=== PATIENT | female | born 1935 | race Caucasian/White ===

== ENCOUNTER 2018-03-01 20:05 | Emergency (ER) | payer OTHER, MEDICAID ==
--- NOTE | 2018-03-01 20:05 | EDPHY ---
H & P Time Seen by Provider: 03/01/18 20:05 Constitutional: Initial Vital Signs Temperature (C) 37.7 C 03/01/18 20:15 Heart Rate 89 03/01/18 20:15 Respiratory Rate 20 03/01/18 20:15 Blood Pressure 173/91 H 03/01/18 20:15 O2 Sat (%) 92 03/01/18 20:15 O2 Delivery Mode Room Air Allergies/Adverse Reactions: propylene glycol Allergy (Verified 03/01/18 20:21) Home Medications: Medication Instructions Recorded Fluticasone Nasal [Flonase Nasal 1 sprays NASAL DAILY 08/03/14 [place] (RX)] Medical Decision Making ED Course/Re-evaluation: CHIEF COMPLAINT: Racing heart HISTORY OF PRESENT ILLNESS: The patient is an 82 y/o female with a history of asthma and atrial fibrillation arriving via EMS complaining of a racing heart onset while watching TV today. The patient was watching TV when she noticed her heart rate increased to 130bpm. When EMS arrived they noted that her highest heart rate was 120. While en route to the emergency department her heart rate normalized to 97. Per the patient, she has had decreased fluid intake today but has been eating normally; she only had wine at dinner today. As she hasn't been drinking much fluid, she has had decreased urine output. No fever, headache, chest pain, shortness of breath, abdominal pain, urinary or bowel complaints, numbness, paresthesias. REVIEW OF SYSTEMS: A comprehensive 10 system review of systems is otherwise negative aside from elements mentioned in the history of present illness and medical decision making. PHYSICAL EXAM: HR, BP, O2 Sat, RR. Temp noted General Appearance: Alert, well hydrated, appropriate, and non-toxic appearing. Head: Atraumatic without scalp tenderness or obvious injury Eyes: Pupils equal, round, reactive to light and accommodation, EOMI, no trauma , no injection. Ears: Clear bilaterally, no perforation, normal landmarks Nose: Atraumatic, no rhinorrhea, clear. Throat: There is no erythema or exudates, no lesions, normal tonsils, mucus membranes moist. Neck: Supple, 2+ carotid upstroke, nontender, no lymphadenopathy. Respiratory: No retractions, no distress, no wheezes, and no accessory muscle use. Lungs are clear to auscultation bilaterally. Cardiovascular: Tachycardic, no murmurs, rubs, or gallops. Bilateral carotid, radial, dorsalis pedis, and posterior tibial pulses intact. Good capillary refill all extremities. Gastrointestinal: Abdomen is soft, nontender, non-distended, no masses, no rebound, no guarding, no peritoneal signs. Musculoskeletal: Normal active ROM of all extremities, atraumatic. Neurological: Alert, appropriate, and interactive. The patient has normal DTRs and non-focal cranial nerves, motor, sensory, and cerebellar exam. Skin: No rashes, good turgor, no nodules on palpation. Past medical history: Asthma, atrial fibrillation Past surgical history: Cataract surgery Family history: Denies Social history: , lives in [place], single DIAGNOSTICS/PROCEDURES/CRITICAL CARE TIME: EKG: The 12 lead EKG was interpreted by myself as sinus rhythm with a rate of 85 , probable left atrial enlargement, borderline left axis deviation. See hard copy and/or "tracemaster" electronic copy for interpretation. DIFFERENTIAL DIAGNOSIS: The differential diagnosis for the patient's narrow complex tachycardia included but was not limited to various causes of sinus tachycardia such as dehydration and medicines, SVT, atrial flutter, atrial fibrillation, pulmonary causes. MEDICAL DECISION MAKING: The patient is an 82 y/o female arriving via EMS presenting with a racing heart onset while watching TV today. Her highest heart rate en route was 120bpm. On my exam she is mildly tachycardic which I suspect is due to dehydration, but the physical exam is otherwise normal. Labs and EKG ordered; 1L IV NS administered. 2015: I interpreted patient's EKG as sinus rhythm with a rate of 85. 2034: Patient has normal labs. I reassessed her and she is feeling much better after 0.5mL IV NS and oral fluids. Patient's mild tachycardia and mild dehydration have resolved. Return precautions provided; patient is comfortable with this plan. - Data Points Laboratory Results: 03/01/18 03/01/18 20:17 20:14 POC Hgb 15.0 gm/dL gm/dL (12.6-16.3) POC Hct 44 % % (38-47) POC Sodium 142 mEq/L mEq/L (135-145) POC Potassium 3.8 mEq/L mEq/L (3.3-5.0) POC Chloride 103 mEq/L mEq/L (97-110) POC BUN 14 mg/dL mg/dL (7-23) POC Creatinine 0.6 mg/dL mg/dL (0.6-1.0) POC Glucose 94 mg/dL mg/dL (70-100) POC Troponin I 0.00 ng/mL ng/mL (0.00-0.08) Medications Given: Discontinued Medications Sodium Chloride (Ns) 1,000 mls @ 0 mls/hr IV EDNOW ONE; Wide Open PRN Reason: Protocol Stop: 03/01/18 20:11 Last Admin: 03/01/18 20:13 Dose: 1,000 mls Point of Care Test Results: Chemistry 03/01/18 03/01/18 20:17 20:14 POC Sodium 142 mEq/L mEq/L (135-145) POC Potassium 3.8 mEq/L mEq/L (3.3-5.0) POC Chloride 103 mEq/L mEq/L (97-110) POC BUN 14 mg/dL mg/dL (7-23) POC Creatinine 0.6 mg/dL mg/dL (0.6-1.0) POC Glucose 94 mg/dL mg/dL (70-100) POC Troponin I 0.00 ng/mL ng/mL (0.00-0.08) ISTAT H&H 03/01/18 20:17 POC Hgb 15.0 gm/dL gm/dL (12.6-16.3) POC Hct 44 % % (38-47) Departure - Departure Disposition: Home, Routine, Self-Care Clinical Impression: Tachycardia, Dehydration Condition: Good Instructions: Dehydration (ED), Tachycardia (ED) Additional Instructions: 1. Drink plenty of fluids. 2. Follow-up with your primary doctor within 72 hours. 3. Return to the Emergency Department for fever, chest pain, shortness of breath , increasing pain or other worsening of condition. Referrals: Maciej Kuhn MD [Medical Doctor] - As per Instructions Report Scribed for: Jewel Car Report Scribed by: Kayla Krishnamurthy Date of Report: 03/01/18 Time of Report: 20:06
[2018-03-01] MEDS ORDERED: NS 1,000 ML IV ONE (20:10)
[2018-03-01 20:27] VITALS: BP 151/64
--- NOTE | 2018-03-02 17:36 | CPEKG ---
Test Reason : OPEN Blood Pressure : / mmHG Vent. Rate : 085 BPM Atrial Rate : 085 BPM P-R Int : 177 ms QRS Dur : 088 ms QT Int : 377 ms P-R-T Axes : 048 -20 051 degrees QTc Int : 449 ms Sinus rhythm Probable left atrial enlargement Borderline left axis deviation Nonspecific repol abnormality, diffuse leads Confirmed by Jewel Car ([id number]) on 03/02/2018 5:35:40 PM Referred By: Confirmed By:Jewel Car
== END 2018-03-01 20:56 | disposition home or self-care (01) ==
LOC: EDUNIT#
DX: R00.0 Tachycardia, unspecified (principal); E86.0 Dehydration; I48.91 Unspecified atrial fibrillation; J45.909 Unspecified asthma, uncomplicated
CPT/HCPCS: 82435-PO; 82565-PO; 82947-PO; 84132-PO; 84295-PO; 84484-PO; 84520-PO; 85014-PO